=== PATIENT | female | born 1975 | race Caucasian/White ===

== ENCOUNTER 2020-06-02 09:03 | Emergency (ER) | payer OTHER ==
[2020-06-02 09:09] VITALS: BP 117/59; PULSE 84; TEMP 98; BMI 27.3
[2020-06-02] MEDS ORDERED: DIPHTH,PERTUSS(ACELL),TET 0.5 ML DISP.SYRIN IM ONE ×2 (10:14→10:16)
== END 2020-06-02 10:21 | disposition home or self-care (01) ==
LOC: JER 09:03 → JERFT 09:03
PROC: 3E0234Z Introduction of Serum, Toxoid and Vaccine into Muscle, Percutaneous Approach (ICD-10-PCS; principal; 2020-06-02)
DX: S01.511A Laceration without foreign body of lip, initial encounter (principal)
CPT/HCPCS: 90715; 99284-25

== ENCOUNTER 2020-06-09 12:49 | Emergency (ER) | payer OTHER ==
[2020-06-09 12:57] VITALS: BP 120/64; PULSE 68; BMI 22.8
== END 2020-06-09 14:01 | disposition home or self-care (01) ==
LOC: JERFT 12:49
DX: Z48.02 Encounter for removal of sutures (principal)
CPT/HCPCS: 99281-25

== ENCOUNTER 2020-12-15 17:09 | Emergency (ER) | payer OTHER ==
[2020-12-15 17:20] VITALS: BP 111/60; PULSE 75; TEMP 98.4; BMI 29.6
[2020-12-15] MEDS ORDERED: SODIUM CHLORIDE 1,000 ML IV STA (18:15)
[2020-12-15] MEDS ORDERED: METOCLOPRAMIDE HCL INJECTION 10 MG/2 ML VIAL IVPB ONE (18:15)
[2020-12-15] MEDS ORDERED: METOCLOPRAMIDE HCL INJECTION 10 MG/2 ML VIAL ONE (18:28)
[2020-12-15 18:46] LABS: EOS % 0.4 % (0-4.5); HEMATOCRIT 35.4 % (32.4-45.2); HEMOGLOBIN 12.2 GM/dL (10.7-15.3); MCH 31.1 pg (25.7-33.7); MCHC 34.5 g/dl (32.0-36.0); MEAN CELL VOLUME 90.2 fl (80-96); MEAN PLT VOLUME 8.1 fl (7.5-11.1); MONO % 8.3 % (3.8-10.2); NEUT % 53.3 % (42.8-82.8); PLATELET COUNT 259 10^3/uL (134-434); RBC 3.92 M/mm3 (3.60-5.2); RDW 12.4 % (11.6-15.6); WHITE BLOOD COUNT 6.2 K/mm3 (4.0-10.0)
[2020-12-15 19:09] LABS: ALBUMIN 3.7 g/dl (3.4-5.0); CALCIUM 9.4 mg/dL (8.5-10.1)
[2020-12-15 19:10] LABS: BLOOD UREA NITROGEN 10.5 mg/dL (7-18)
[2020-12-15 19:13] LABS: CREATININE 0.7 mg/dL (0.55-1.3)
[2020-12-15 19:14] LABS: BILIRUBIN,TOTAL 0.3 mg/dL (0.2-1)
[2020-12-15 19:15] LABS: TOT PROT 8.2 g/dl (6.4-8.2)
== END 2020-12-15 19:53 | disposition home or self-care (01) ==
LOC: JER 17:09
PROC: 3E033GC Introduction of Other Therapeutic Substance into Peripheral Vein, Percutaneous Approach (ICD-10-PCS; principal; 2020-12-15)
PROC: 3E0337Z Introduction of Electrolytic and Water Balance Substance into Peripheral Vein, Percutaneous Approach (ICD-10-PCS; 2020-12-15)
DX: G44.219 Episodic tension-type headache, not intractable (principal)
CPT/HCPCS: 36415; 80053; 84439; 84443; 85025; 99284-25

== ENCOUNTER 2022-06-03 11:23 | Emergency (ER) | payer OTHER ==
[2022-06-03 11:31] VITALS: BP 123/62; PULSE 72; RESP 17; TEMP 97.6; BMI 30.7
[2022-06-03] MEDS ORDERED: IBUPROFEN 400 MG TABLET (FP) PO ONE ×2 (12:42→12:46)
== END 2022-06-03 13:01 | disposition home or self-care (01) ==
LOC: JERFT 11:23
DX: S46.911A Strain of unspecified muscle, fascia and tendon at shoulder and upper arm level, right arm, initial encounter (principal); X50.0XXA Overexertion from strenuous movement or load, initial encounter
CPT/HCPCS: 99283-25

== ENCOUNTER 2022-11-15 08:33 | Emergency (ER) | payer OTHER ==
[2022-11-15 08:39] VITALS: RESP 18; BMI 30.6
[2022-11-15] MEDS ORDERED: ACETAMINOPHEN 325 MG TABLET (FP) PO ONE (09:28)
[2022-11-15] MEDS ORDERED: DEXAMETHASONE SOD PHOSPHATE 10 MG/1 ML VIAL IM ONE (09:28)
[2022-11-15] MEDS ORDERED: ACETAMINOPHEN 325 MG TABLET (FP) ONE (09:32)
[2022-11-15] MEDS ORDERED: DEXAMETHASONE SOD PHOSPHATE 10 MG/1 ML VIAL ONE (09:32)
[2022-11-15 10:55] VITALS: BP 107/61; PULSE 81; TEMP 98.1
== END 2022-11-15 11:57 | disposition home or self-care (01) ==
LOC: JER 08:33
PROC: 3E023GC Introduction of Other Therapeutic Substance into Muscle, Percutaneous Approach (ICD-10-PCS; principal; 2022-11-15)
DX: R50.9 Fever, unspecified (principal); J02.9 Acute pharyngitis, unspecified; R05.1 Acute cough; Z20.822 Contact with and (suspected) exposure to COVID-19
CPT/HCPCS: 0241U-QW; 87070; 87077; 99284-25; J1100